=== PATIENT | female | born 1975 | race Asian ===

== ENCOUNTER 2017-11-25 12:31 | Inpatient (IN) | payer OTHER ==
[~2017-11-25] VITALS: Ht 154.9 cm; Wt 54.0 kg
[2017-11-25] MEDS ORDERED: SODIUM CHLORIDE 0.9% 2,000 ML IV ONE (13:10)
[2017-11-25] MEDS ORDERED: ACETAMINOPHEN 325MG TABLET PO STA (13:10)
[2017-11-25] MEDS ORDERED: LEVOFLOXACIN 750MG PREMIX 150 ML IV ONE (13:15)
[2017-11-25] MEDS ORDERED: MORPHINE SULFATE 4 MG/ML CPJ (NOT FOR IM USE) IV ONE (13:15)
[2017-11-25] MEDS ORDERED: ONDANSETRON HCL 4MG/2ML VIAL IV ONE (13:15)
[2017-11-25] MEDS ORDERED: METF500T6 MT (13:23)
[2017-11-25] MEDS ORDERED: MYCO250C MT (13:25)
[2017-11-25] MEDS ORDERED: TACR1CAP MT (13:29)
[2017-11-25] MEDS ORDERED: ALLO100T MT (13:31)
[2017-11-25] MEDS ORDERED: BIOT1CAP3 MT (13:33)
[2017-11-25] MEDS ORDERED: BIOT5000 MT (13:33)
[2017-11-25] MEDS ORDERED: ACETAMINOPHEN 325MG TABLET ONE (13:59)
[2017-11-25 14:06] LABS: CLARITY URINE CLEAR (CLEAR); COLOR URINE YELLOW (YELLOW); KETONES URINE 2+ (NEGATIVE); LEUKOCYTE ESTERASE URINE TRACE (NEGATIVE); NITRITE URINE NEGATIVE (NEGATIVE); OCCULT BLOOD URINE 2+ (NEGATIVE); PH URINE 5.5 (4.5-8.0); PROTEIN URINE 1+ (NEGATIVE); SPECIFIC GRAVITY URINE 1.022 (1.005-1.030); UROBILINOGEN URINE 0.2 E.U./dL (0.2-1.0)
[2017-11-25 14:55] LABS: CHLORIDE 103 mEq/L (98-107)
[2017-11-25 14:56] LABS: BASOPHILS % 0.2 % (0.0-2.0); HEMOGLOBIN. 10.9 g/dL (12.0-16.0); LYMPHOCYTES % 8.1 % (20.0-50.0); MEAN CORPUSCULAR HEMOGLOBIN 20.8 pg (28.0-32.0); MEAN PLATELET VOLUME 8.2 fl (7.4-10.4); MONOCYTES % 12.3 % (2.0-8.0); NEUTROPHILS % 79.4 % (40.0-76.0); PLATELET 251 x1000/uL (130-400); RED BLOOD CELL COUNT 5.23 mill/uL (4.2-5.4); RED CELL DISTRIBUTION WIDTH 13.9 % (11.6-14.6)
[2017-11-25 14:59] LABS: PARTIAL THROMBOPLASTIN TIME 32.4 sec (23.4-31.0); PROTHROMBIN TIME 10.9 sec (9.4-11.6)
[2017-11-25 15:07] LABS: HCG SCREEN NEGATIVE
[2017-11-25 15:50] LABS: PLATELET ESTIMATE NORMAL
[2017-11-25] MEDS ORDERED: ONDANSETRON 4MG ODT PO PRN (17:58)
[2017-11-25] MEDS ORDERED: MORPHINE SULFATE 4 MG/ML CPJ (NOT FOR IM USE) IV PRN (18:00)
[2017-11-25] MEDS ORDERED: GUAIFENESIN 200MG/10ML SUGAR FREE UDC PO PRN (18:00)
[2017-11-25] MEDS ORDERED: CLONIDINE 0.1MG TABLET PO PRN (18:00)
[2017-11-25] MEDS ORDERED: DIPHENHYDRAMINE 50MG/ML VIAL IV PRN (18:00)
[2017-11-25] MEDS ORDERED: DOCUSATE SODIUM 100MG CAPSULE PO PRN (18:00)
[2017-11-25] MEDS ORDERED: TACROLIMUS 1MG CAPSULE PO SCH (18:00)
[2017-11-25] MEDS ORDERED: MYCOPHENOLATE MOFETIL 250MG CAPSULE PO SCH (18:00)
[2017-11-25] MEDS ORDERED: MAGNESIUM/ALUMINUM HYDROXIDE/SIMETHICONE 30ML UDC PO PRN (18:00)
[2017-11-25 18:03] VITALS: BP 110/58
[2017-11-25 19:00] VITALS: BP 110/72
[2017-11-25] MEDS: SODIUM CHLORIDE 0.9% 1,000 ML IV SCH (19:39)
[2017-11-25] MEDS ORDERED: DEXTROSE 50% WATER 50ML SYRINGE IV PRN (19:45)
[2017-11-25 20:00] VITALS: BP 127/77
[2017-11-25] MEDS: ACETAMINOPHEN 325MG TABLET PO PRN (20:55)
[2017-11-25] MEDS: INSULIN LISPRO 100 UNITS/ML SUBCUT SCH (20:58)
[2017-11-25] MEDS: BLOOD SUGAR DIAGNOSTIC STRIP TEST SCH (20:58)
[2017-11-26] VITALS: BP 104/56
[2017-11-26 04:00] VITALS: BP 120/71
[2017-11-26] MEDS: MYCOPHENOLATE MOFETIL 500MG TABLET PO SCH ×2 (05:26→17:02)
[2017-11-26] MEDS: TACROLIMUS 1MG CAPSULE PO SCH ×2 (05:26→17:02)
[2017-11-26] MEDS: BLOOD SUGAR DIAGNOSTIC STRIP TEST SCH ×4 (06:24→21:03)
[2017-11-26] MEDS: ACETAMINOPHEN 325MG TABLET PO PRN (07:43)
[2017-11-26 07:56] LABS: CHLORIDE 103 mEq/L (98-107)
[2017-11-26 08:00] VITALS: BP 101/70
[2017-11-26 08:03] LABS: BASOPHILS % 0.3 % (0.0-2.0); HEMATOCRIT. 35.7 % (36.0-48.0); HEMOGLOBIN. 10.9 g/dL (12.0-16.0); LYMPHOCYTES % 7.4 % (20.0-50.0); MEAN CORPUSCULAR HEMOGLOBIN 20.7 pg (28.0-32.0); MEAN CORPUSCULAR VOLUME 67.7 fL (81.0-99.0); MEAN PLATELET VOLUME 8.7 fl (7.4-10.4); MONOCYTES % 10.2 % (2.0-8.0); NEUTROPHILS % 82.1 % (40.0-76.0); PLATELET 238 x1000/uL (130-400); RED BLOOD CELL COUNT 5.27 mill/uL (4.2-5.4); RED CELL DISTRIBUTION WIDTH 14.1 % (11.6-14.6)
[2017-11-26] MEDS: INSULIN LISPRO 100 UNITS/ML SUBCUT SCH ×4 (08:46→21:00)
[2017-11-26] MEDS: HYDROCODONE/ACETAMINOPHEN 5/325MG TABLET PO PRN ×2 (09:07→16:02)
[2017-11-26] MEDS: SODIUM CHLORIDE 0.9% 1,000 ML IV SCH ×2 (10:07→21:00)
[2017-11-26 12:00] VITALS: BP 91/61
[2017-11-26 16:00] VITALS: BP 114/75
[2017-11-26] MEDS: LEVOFLOXACIN 500MG PREMIX 100 ML IV SCH (16:03)
[2017-11-26 17:22] LABS: BASOPHILS % 0.2 % (0.0-2.0); EOSINOPHILS % 0.2 % (0.0-5.0); HEMATOCRIT. 32.7 % (36.0-48.0); LYMPHOCYTES % 8.5 % (20.0-50.0); MEAN CORPUSCULAR HEMOGLOBIN 20.7 pg (28.0-32.0); MEAN CORPUSCULAR VOLUME 67.5 fL (81.0-99.0); MEAN PLATELET VOLUME 7.8 fl (7.4-10.4); MONOCYTES % 10.1 % (2.0-8.0); PLATELET 219 x1000/uL (130-400); RED BLOOD CELL COUNT 4.84 mill/uL (4.2-5.4)
[2017-11-26 17:29] LABS: CHLORIDE 106 mEq/L (98-107)
[2017-11-26] MEDS: METFORMIN HCL 500MG TABLET PO SCH (19:09)
[2017-11-26 20:00] VITALS: BP 107/76
[2017-11-27] VITALS: BP 120/79
[2017-11-27 04:00] VITALS: BP 113/79
[2017-11-27] MEDS: MYCOPHENOLATE MOFETIL 500MG TABLET PO SCH ×2 (05:13→17:09)
[2017-11-27] MEDS: HYDROCODONE/ACETAMINOPHEN 5/325MG TABLET PO PRN ×2 (05:13→16:15)
[2017-11-27] MEDS: TACROLIMUS 1MG CAPSULE PO SCH ×2 (05:13→17:10)
[2017-11-27] MEDS: BLOOD SUGAR DIAGNOSTIC STRIP TEST SCH ×4 (07:46→20:57)
[2017-11-27] MEDS: INSULIN LISPRO 100 UNITS/ML SUBCUT SCH ×4 (07:50→21:02)
[2017-11-27 08:00] VITALS: BP 113/73
[2017-11-27] MEDS: METFORMIN HCL 500MG TABLET PO SCH ×2 (08:57→17:09)
[2017-11-27 11:29] VITALS: BP 128/77
[2017-11-27] MEDS ORDERED: BUTALBITAL/ACETAMINOPHEN/CAFFEINE 50/325/40MG TABLET PO PRN (11:30)
[2017-11-27] MEDS: LEVOFLOXACIN 500MG PREMIX 100 ML IV SCH (13:40)
[2017-11-27] MEDS ORDERED: VANCOMYCIN 1250MG in DEXTROSE 5% WATER 250ML IV SCH (15:00)
[2017-11-27 15:24] VITALS: BP 108/80
[2017-11-27] MEDS: SODIUM CHLORIDE 0.9% 1,000 ML IV SCH ×2 (21:02→23:20)
[2017-11-28] VITALS: BP 155/92
[2017-11-28] MEDS: HYDROCODONE/ACETAMINOPHEN 5/325MG TABLET PO PRN (00:44)
[2017-11-28 04:00] VITALS: BP 107/60
[2017-11-28] MEDS: TACROLIMUS 1MG CAPSULE PO SCH (05:53)
[2017-11-28] MEDS: MYCOPHENOLATE MOFETIL 500MG TABLET PO SCH (05:53)
[2017-11-28] MEDS ORDERED: VANCOMYCIN 1 G PREMIX 200 ML IV SCH (06:00)
[2017-11-28] MEDS: BLOOD SUGAR DIAGNOSTIC STRIP TEST SCH ×2 (07:20→13:13)
[2017-11-28] MEDS: INSULIN LISPRO 100 UNITS/ML SUBCUT SCH ×2 (07:50→12:50)
[2017-11-28 08:01] VITALS: BP 122/78
[2017-11-28] MEDS: METFORMIN HCL 500MG TABLET PO SCH (08:54)
[2017-11-28 11:46] VITALS: BP 125/88
[2017-11-28] MEDS ORDERED: AMPICILLIN 1,000 MG in SODIUM CHLORIDE 0.9% 50 ML IV SCH (12:00)
[2017-11-28 12:27] LABS: BASOPHILS % 0.2 % (0.0-2.0); EOSINOPHILS % 4.6 % (0.0-5.0); HEMATOCRIT. 32.9 % (36.0-48.0); HEMOGLOBIN. 10.3 g/dL (12.0-16.0); LYMPHOCYTES % 22.2 % (20.0-50.0); MEAN CORPUSCULAR HEMOGLOBIN 20.9 pg (28.0-32.0); MEAN CORPUSCULAR VOLUME 66.8 fL (81.0-99.0); MEAN PLATELET VOLUME 7.6 fl (7.4-10.4); PLATELET 252 x1000/uL (130-400); RED BLOOD CELL COUNT 4.93 mill/uL (4.2-5.4); RED CELL DISTRIBUTION WIDTH 14.2 % (11.6-14.6)
[2017-11-28 14:51] VITALS: BP 125/88
[2017-11-28 16:11] VITALS: BP 121/81
[2017-11-30 05:21] LABS: CHLAMYDIA TRACHOMATIS NAA Negative (Negative); NEISSERIA GONORRHOEAE NAA Negative (Negative)
== END 2017-11-28 16:35 | disposition home or self-care (01) | DRG 872 ==
LOC: EDBEDREQSVC 16:30 → EDBEDREQ 16:30 → ER 16:39 → 6WST 17:00 → ENRESERV 17:03
PROVIDERS: ADMIT Hospitalist; ATTEND Hospitalist
DX: A41.9 Sepsis, unspecified organism (principal); N12 Tubulo-interstitial nephritis, not specified as acute or chronic; E46 Unspecified protein-calorie malnutrition; Z94.0 Kidney transplant status; E11.9 Type 2 diabetes mellitus without complications; D64.9 Anemia, unspecified; B95.2 Enterococcus as the cause of diseases classified elsewhere; Z79.84 Long term (current) use of oral hypoglycemic drugs; Z79.899 Other long term (current) drug therapy
CPT/HCPCS: 36415; 70450; 71045; 71250; 74176; 80053; 80197; 81003; 82962; 83605; 83690; 84145; 84484; 84703; 85025; 85610; 85730; 87040; 87077; 87086; 87186; 87491; 87591; 93005; 93970; 96374; 96375; 99285; J0290; J1815; J1956; J2270; J2405; J3370; J7030; J7060; J7507; J7517